=== PATIENT | female | born 1990 | race Caucasian/White ===

== ENCOUNTER 2017-10-07 10:59 | Emergency (ER) | payer SELFPAY ==
--- OUTSIDE RECORDS SUMMARY | 2017-10-07 11:01 | XMS REPORT | Clinical Summary ---
:1990 Author Organization [facility] Address [address] [place] [id number] Care Team Providers Name Role Phone Unavailable Primary Care Provider Unavailable Allergies Active Allergy Reactions Severity Noted Date Comments Risperidone Other 09/29/2017 Seizures, and dystonia per patient Current Medications Prescription Sig. Disp. Refills Start Date End Date Status clonazePAM (KLONOPIN) Take 1 mg by Active 1 mg tablet mouth 2 times daily as needed for Anxiety (to help with sleep as needed per patient). ibuprofen (MOTRIN) 400 Take 1 tablet by 30 tablet 0 10/02/2017 Active mg tabletIndications: mouth every 6 Sepsis, due to hours as needed unspecified organism for Pain or Fever > 100.5. QUEtiapine (SEROQUEL) Take 1 tablet by 30 tablet 0 10/02/2017 Active 300 mg mouth at bedtime tabletIndications: nightly. Sepsis, due to unspecified organism ciprofloxacin HCl Take 1 tablet by 24 tablet 0 10/02/2017 10/14/2017 Active (CIPRO) 500 mg mouth 2 times tabletIndications: daily for 12 Sepsis, due to days. unspecified organism Active Problems Problem Noted Date Fever 09/29/2017 SOB (shortness of breath) 09/29/2017 Sepsis 09/29/2017 Chest pain on breathing Generalized abdominal pain IV drug abuse Encounters Date Type Specialty Care Team Description 09/29/2017 - Hospital Encounter CAITLIN Evans (shortness of breath) ( Primary Dx); 10/02/2017 MD Damian Chest pain on breathing; Madelin Larson MD Fever, unspecified fever cause; Generalized abdominal pain; IV drug abuse; Sepsis, due to unspecified organism after 10/06/2016 Social History Tobacco Use Types Packs/Day Years Used Date Current Every Day Smoker Cigarettes 1 10 Smokeless Tobacco: Never Used Alcohol Use Drinks/Week oz/Week Comments No Sex Assigned at Date Recorded Not on file Last Filed Vital Signs Vital Sign Reading Time Taken Blood Pressure 110/71 10/02/2017 2:50 AM CDT Pulse 109 10/01/2017 7:47 PM CDT Temperature 37.7 C (99.8 F) 10/02/2017 2:50 AM CDT Respiratory Rate 16 10/02/2017 2:50 AM CDT Oxygen Saturation 100% 10/02/2017 2:50 AM CDT Inhaled Oxygen Concentration - - Weight 65.7 kg (144 lb 12.8 oz) 09/29/2017 5:56 PM CDT Height 158.3 cm (5' 2.32") 09/29/2017 5:56 PM CDT Body Mass Index 26.21 09/29/2017 5:56 PM CDT Plan of Treatment Health Maintenance Due Date Last Done Comments IMM MenB (1 of 2 - Bexsero 2-Dose Series) 2002 Cervical Cancer Scrn (3 Yrs) 2013 IMM Influenza Seasonal Dec to May (>/=19 yrs) 12/14/2017 Results CBC/DIFF (10/02/2017 6:00 AM)Only the most recent of3 resultswithin the time period is included. Component Value Ref Range WBC 11.3 (H) 4.5 - 11.0 K/uL RBC 3.67 (L) 4.20 - 5.40 M/uL Hemoglobin 10.4 (L) 12.0 - 16.0 g/dL Hematocrit 30.9 (L) 37.0 - 47.0 % MCV 84 82 - 92 fL MCH 28.3 27.0 - 32.0 pg MCHC 33.7 32.0 - 36.0 g/dL RDW 42.0 36.4 - 46.3 fL Platelet 176 150 - 400 K/uL Mean Platelet Volume 11.6 9.4 - 12.4 fL Percent NRBC 0.0 Absolute NRBC 0.00 Neutrophil 59.0 34.0 - 70.0 % Lymphocyte 22.0 20.0 - 50.0 % Monocyte 13.0 (H) 5.0 - 12.0 % Eosinophil 2.0 0.7 - 5.0 % Basophil None seen 0.1 - 1.2 % Neutrophil, Abs 6.68 (H) 1.56 - 6.13 K/uL Lymphocyte, Abs 2.49 1.18 - 3.74 K/uL Monocyte, Abs 1.47 (H) 0.24 - 0.36 K/uL Eosinophil, Abs 0.23 0.04 - 0.36 K/uL Basophil, Abs None seen 0.01 - 0.08 K/uL Metamyel 3 % Myelocyte 1 % Specimen Performing Laboratory Blood MISYS LACTIC ACID (09/30/2017 11:40 AM)Only the most recent of2 resultswithin the time period is included. Component Value Ref Range Lactic Acid 1.3 0.5 - 2.2 mmol/L Specimen Performing Laboratory Blood MISYS BASIC METABOLIC PANEL (09/30/2017 11:40 AM)Only the most recent of2 resultswithin the time period is included. Component Value Ref Range CO2 20 (L) 21 - 31 mmol/L Chloride 105 98 - 107 mmol/L Potassium 3.7 3.5 - 5.1 mmol/L Sodium 135 (L) 136 - 145 mmol/L Glucose 104 70 - 110 mg/dL Urea Nitrogen 13 7 - 25 mg/dL Creatinine 0.90 0.6 - 1.2 mg/dL Anion Gap 10 Calcium 8.1 (L) 8.6 - 10.3 mg/dL GFR, Estimated >60 mL/min/1.73 m2 GFR, Estim, Afr-Am >60 mL/min/1.73 m2 Specimen Performing Laboratory Blood MISYS BLOOD CULTURE (09/30/2017 11:40 AM)Only the most recent of3 resultswithin the time period is included. Component Value Ref Range Spec Description Blood Order Comments None Culture No growth 5 days Report Status Final 10/05/2017 Specimen Performing Laboratory Blood bag - BLOOD MISYS C. DIFFICILE TOXIN (09/30/2017 12:05 AM) Component Value Ref Range Spec Description Feces Order Comments None Direct Exam Negative for toxigenic Clostridium difficile by EIA No C. difficile infection or organism present. Discontinue enteric isolation and therapy. Report Status Final 09/30/2017 Specimen Performing Laboratory Stool - FECES MISYS CHLAM/GC DNA AMPLI (09/29/2017 3:50 PM) Component Value Ref Range Chlamydia trach Negative NEG N gonorrhoeae Negative NEG Comment: This test utilizes [employer] Aptima Combo 2 Assay for target amplification of rRNA for the qualitative detection of Chlamydia trachomatis and Neisseria gonorrhea. Spec Description Urine Specimen Performing Laboratory Other (Specify in Comments) - URINE MISYS ENTERIC PATHOGENS NUCLEIC ACID TEST (09/29/2017 3:46 PM) Component Value Ref Range Campylogbacter Not detected Salmonella Not detected Shigella Not detected Vibrio Not detected Yersinia entero Not detected Shiga Toxin 1 Not detected Shiga Toxin 2 Not detected Norovirus GI-GII Not detected Rotavirus A Not detected This test utilizes FDA cleared [employer] Enteric Pathogens Nucleic Acid Test(EP) from [employer] for qualitative nucleic acids multiplex detection and identification of common pathogenic enteric bacteria, viruses, and genetic virulence marker from stool of individuals with signs and symptoms of gastrointestinal infection. Specimen Performing Laboratory MISYS POCT URINE DIPSTICK - (09/29/2017 3:34 PM) Component Value Ref Range Control PASS NEGATIVE VBG POC (09/29/2017 2:26 PM)Only the most recent of3 resultswithin the time period is included. Component Value Ref Range pH, Trudy POC 7.38 7.33 - 7.43 pCO2, Trudy POC 31.5 (L) 38.0 - 50.0 mm Hg pO2, Trudy POC 27 (L) 50 - 75 mm Hg Base Deficit, Trudy POC 5 HCO3, Trudy POC 18.7 (L) 22.0 - 26.0 mmol/L % Sat, Trudy POC 51 (L) 60 - 85 % Lactic Acid, Trudy POC 4.07 (H) 0.4 - 2.0 mmol/L TCO2, TRUDY POC 20 (L) 21 - 32 mmol/L Specimen Performing Laboratory MISYS BMP POC (09/29/2017 12:21 PM)Only the most recent of2 resultswithin the time period is included. Component Value Ref Range CO2 POC 20 (L) 21 - 32 mmol/L Chloride POC 98 98 - 107 mmol/L Potassium POC 4.0 3.50 - 5.10 mmol/L Sodium POC 133 (L) 136 - 145 mmol/L Glucose POC 114 (H) 74 - 106 mg/dL Urea Nitrogen POC 31 (H) 7 - 18 mg/dL Creatinine POC 1.7 (H) 0.6 - 1.3 mg/dL Calcium Ionized POC 1.05 (L) 1.15 - 1.29 mmol/L Hemoglobin POC 10.9 (L) 12.0 - 16.0 g/dL Hematocrit POC 32.0 (L) 37.0 - 47.0 % GFR, Estimated 37 mL/min/1.73 m2 GFR, Estim, Afr-Am 45 mL/min/1.73 m2 Specimen Performing Laboratory MISYS UA CHEMISTRIES (09/29/2017 11:42 AM) Component Value Ref Range Color Yellow Clarity Cloudy Spec [place] 1.016 1.001 - 1.035 pH 5.0 5 - 8 Protein 3+ (A) NEG Glucose Negative NEG Ketone Negative NEG Bilirubin Negative NEG Nitrate Negative NEG Urobilinogen <1.0 0.2 - 1.0 EU/dL Leukocyte 2+ (A) NEG Blood 2+ (A) NEG RBC 31 (H) 0 - 4 /HPF WBC >182 (H) 0 - 5 /HPF WBC Clumps Many Bacteria Moderate Mucous Present Specimen Performing Laboratory Urine MISYS TEST (09/29/2017 11:42 AM) Component Value Ref Range Negative Specimen Performing Laboratory Urine MISYS URINE CULTURE (09/29/2017 11:17 AM) Component Value Ref Range Spec Description Clean catch urine Order Comments None Culture 10,000-100,000 CFU/ml Escherichia coli >100,000 colonist/ml Gr.D Enterococcus Report Status Final 10/02/2017 Organism 10,000-100,000 CFU/ml Escherichia coli Method JANNIE Amikacin <=4 Susceptible Ampicillin >16 Resistant Cefazolin 2 Resistant Cefepime <=0.5 Susceptible Ceftriaxone <=0.5 Susceptible Ceftazidime <=0.5 Susceptible Ciprofloxacin <=0.5 Susceptible Ertapenem <=0.125 Susceptible Gentamicin <=1 Susceptible Meropenem <=0.125 Susceptible Nitrofurantoin <=16 Susceptible Piperacillin/Tazo <=2/4 Susceptible Tobramycin 1 Susceptible Trimeth-sulfamethox <=0.5/9.5 Susceptible Organism >100,000 colonist/ml Gr.D Enterococcus Method JANNIE Ampicillin 1 Susceptible Vancomycin 1 Susceptible Gentamicin Synergy <=500 Susceptible Streptomycin Synergy <=1000 Susceptible Nitrofurantoin <=16 Susceptible Tetracycline >8 Resistant Specimen Performing Laboratory Urine clean catch - CLEAN CATCH URINE MISYS XRAY CHEST 1 VIEW (09/29/2017 10:01 AM) Specimen Performing Laboratory SMS Impressions IMPRESSION: Bilateral streaky lower lung opacities, which may represent vessels versus atelectasis. However follow-up chest radiograph in 4-6 weeks to document stability/resolution. Dictated By: Alberta Arreola MD, 09/29/2017 11:46 AM I have reviewed the study and agree with the findings in this report. Signed By: Bernard Sparrow DO, 09/29/2017 12:07 PM Narrative EXAM: XR CHEST 1 VIEW DATE: 09/29/2017 9:47 AM INDICATION: fever COMPARISON: None FINDINGS: Devices, Lines, and Tubes: None. Heart and Mediastinum: The cardiac silhouette is unremarkable. Lungs and Pleura: Bilateral streaky lower lung opacities, likely represents vessels. No effusion. No pneumothorax. Bones and Soft Tissues: No acute osseous or soft tissue abnormalities. Procedure Note Interface, Rad/Mammog In - 09/29/2017 12:12 PM CDT EXAM: XR CHEST 1 VIEW DATE: 09/29/2017 9:47 AM INDICATION: fever COMPARISON: None FINDINGS: Devices, Lines, and Tubes: None. Heart and Mediastinum: The cardiac silhouette is unremarkable. Lungs and Pleura: Bilateral streaky lower lung opacities, likely represents vessels. No effusion. No pneumothorax. Bones and Soft Tissues: No acute osseous or soft tissue abnormalities. IMPRESSION IMPRESSION: Bilateral streaky lower lung opacities, which may represent vessels versus atelectasis. However follow-up chest radiograph in 4-6 weeks to document stability/resolution. Dictated By: Alberta Arreola MD, 09/29/2017 11:46 AM I have reviewed the study and agree with the findings in this report. Signed By: Bernard Sparrow DO, 09/29/2017 12:07 PM TROPONIN I POC (09/29/2017 9:50 AM) Component Value Ref Range Troponin POC 0.00 0.00 - 0.08 ng/mL Specimen Performing Laboratory MISYS HCG, QUANTITATIVE (09/29/2017 9:45 AM) Component Value Ref Range hCG, Quantitative <1 <5 mIU/mL Specimen Performing Laboratory MISYS GRAM-NEG BLOOD CULTURE (09/29/2017 9:30 AM) Component Value Ref Range Acinetobacter Not detected Citrobacter Not detected Enterobacter Not detected Proteus Not detected Escherichia coli Detected POSITIVE for Eschericia coli by [employer] nucleic acid test. Conventional identification and antimicrobial susceptibility testing to follow. Klebsiella pneumo Not detected Klebsiella oxytoca Not detected Ps. aeruginosa Not detected CTX M Not detected KPC Not detected NDM Not detected VIM Not detected IMP Not detected OXA Not detected This test is performed on [employer] System utilizing reverse test desk operator (RT), polymerase chain reaction (PCR) and array hybridization , FDA cleared [employer]ene Gram-Negative Blood Culture Nucleic Acid TEest. "Not Detected" results for antimicrobial resitance genes should not be interpreted as confirming antimicrobial susceptibility of detected organisms. Antimicrobial resistance may be present by mechanisms not detected by BC-Gn. 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
--- OUTSIDE RECORDS SUMMARY | 2017-10-07 11:01 | XMS REPORT ---
:1990 [facility] Address [address] [place] [address] [address] [place] [address] Care Team Providers Name Role Phone Unavailable Unavailable Unavailable Problems This patient has no known problems. Allergies, Adverse Reactions, Alerts This patient has no known allergies or adverse reactions. Medications This patient has no known medications. Encounters Start End Encounter Admission Attending Care Care Encounter Date/Time Date/Time Type Type Clinicians Facility Department ID 2017-09-30 Inpatient [facility] [id number] 22:38:12 2017-09-29 Inpatient [facility] [id number] 16:16:27 2017-09-29 Inpatient [facility] [id number] 00:00:00 2017-09-29 2017-09-29 Emergency [facility] [id number] 10:00:53 10:00:53 2017-09-29 2017-09-29 Inpatient [facility] [id number] 09:40:19 09:40:19
[2017-10-07] MEDS ORDERED: ONDANSETRON 4 MG/2 ML VIAL ONE (11:59)
[2017-10-07] MEDS ORDERED: NA CHLORIDE 0.9% 1,000 ML ONE (11:59)
[2017-10-07 12:14] LABS: Urine Blood TRACE (NEG); Urine Glucose NEGATIVE (NEG); Urine Protein 2+ (NEG); Urine Specific Gravity 1.025 (1.005-1.030)
[2017-10-07 12:20] LABS: Absolute Lymphocytes (CBC) 2.5 K/uL (0.7-4.9); Absolute Monocytes 0.7 K/uL (0.1-1.3); Absolute Neutrophil 11.7 K/uL (1.8-8.0); Basophils % 0.6 % (0-1.3); Hematocrit 34.2 % (36.0-45.0); Lymphocytes % 16.7 % (15.3-44.8); MCH 29.1 pg (27.0-35.0); MCV 84.9 fL (80-100); MPV 7.4 fL (7.6-11.3); Monocytes % 4.7 % (3.3-12.3); RBC Red Blood Cell Count 4.03 M/uL (3.86-4.86)
[2017-10-07 12:24] LABS: Albumin 2.7 g/dL (3.4-5.0); Bilirubin Total 0.2 mg/dL (0.2-1.0); Potassium 3.5 mmol/L (3.5-5.1); Protein, Total 7.6 g/dL (6.4-8.2)
[2017-10-07 12:59] LABS: Blood Morphology Comment NOT SEEN (NOT SEEN); Platelet Estimate ADEQ; Urine White Blood Cell Casts OK
--- NOTE | 2017-10-07 13:03 | EDPHYS ---
Physician Documentation [facility] Name: Magy Ott Age: 26 yrs Sex: Female : 1990 Arrival Date: 10/07/2017 Time: 11:02 Bed 13 Private MD: ED Physician Pascual Denise HPI: 10/07 11:24 This 26 yrs old Female presents to ER via Ambulatory with complaints of kav Diarrhea, Weakness. 11:28 The patient presents to the emergency department with nausea, that is mild, vomiting, 0 kav times today, diarrhea, 2 times today. Onset: The symptoms/episode began/occurred acutely, 1 week(s) ago. Possible causes: unknown. The symptoms are aggravated by food , The symptoms are alleviated by nothing. Associated signs and symptoms: Pertinent positives: abdominal pain, diarrhea, fever, nausea, Pertinent negatives: dysuria. 11:33 Severity of symptoms: At their worst the symptoms were mild. kav 11:33 The patient has experienced a previous episode, approximately 1 weeks ago. Patient jennifer released from [facility] approximately one week ago where she was hospitalized for "...e-coli in her blood". She was released from hospital to [facility]. . She reports that she also has some abdominal cramping and "...thinks that she might have had a miscarriage". 11:36 She also reports that she tested positive for on September 25 by home kav test and then started bleeding on September 27.. Historical: - Allergies: 11:13 risperidone; sv - Home Meds: 11:14 Seroquel Oral [Active]; Prozac Oral [Active]; Hydroxyzine Oral [Active]; Toradol Oral sv [Active]; - PMHx: 11:13 Anxiety; Depression; sv - PSHx: 11:13 Ear Tubes; sv - Immunization history:: Adult Immunizations up to date. - Social history:: Smoking status: Patient uses tobacco products, smokes one pack cigarettes per day. - Ebola Screening: : No symptoms or risks identified at this time. - Family history:: not pertinent. - Hospitalizations: : No recent hospitalization is reported. ROS: 11:36 Eyes: Negative for injury, pain, redness, and discharge, ENT: Negative for injury, kav pain, and discharge, Neck: Negative for injury, pain, and swelling, Cardiovascular: Negative for chest pain, palpitations, and edema, Respiratory: Negative for shortness of breath, cough, wheezing, and pleuritic chest pain, Back: Negative for injury and pain, MS/Extremity: Negative for injury and deformity, Skin: Negative for injury, rash, and discoloration, Neuro: Negative for headache, weakness, numbness, tingling, and seizure, Psych: Negative for depression, anxiety, suicide ideation, homicidal ideation, and hallucinations, Allergy/Immunology: Negative for hives, rash, and allergies, Endocrine: Negative for neck swelling, polydipsia, polyuria, polyphagia, and marked weight changes, Hematologic/Lymphatic: Negative for swollen nodes, abnormal bleeding, and unusual bruising. 11:36 Constitutional: Positive for fever, Negative for body aches, chills, fatigue, poor PO intake, weight loss. 11:36 Abdomen/GI: Positive for abdominal pain, nausea, vomiting, and diarrhea, abdominal cramps, bowel incontinence, Negative for abdominal distension, dysphagia. 11:36 : Positive for vaginal bleeding, Negative for urinary symptoms, flank pain, bladder incontinence, foul smelling urine. Exam: 11:36 Constitutional: This is a well developed, well nourished patient who is awake, alert, kav and in no acute distress. Head/Face: Normocephalic, atraumatic. Eyes: Pupils equal round and reactive to light, extra-ocular motions intact. Lids and lashes normal. Conjunctiva and sclera are non-icteric and not injected. Cornea within normal limits. Periorbital areas with no swelling, redness, or edema. ENT: Nares patent. No nasal discharge, no septal abnormalities noted. Tympanic membranes are normal and external auditory canals are clear. Oropharynx with no redness, swelling, or masses, exudates, or evidence of obstruction, uvula midline. Mucous membranes moist. Neck: Trachea midline, no thyromegaly or masses palpated, and no cervical lymphadenopathy. Supple, full range of motion without nuchal rigidity, or vertebral point tenderness. No Meningismus. Chest/axilla: Normal chest wall appearance and motion. Nontender with no deformity. No lesions are appreciated. Respiratory: Lungs have equal breath sounds bilaterally, clear to auscultation and percussion. No rales, rhonchi or wheezes noted. No increased work of breathing, no retractions or nasal flaring. Back: No spinal tenderness. No costovertebral tenderness. Full range of motion. Skin: Warm, dry with normal turgor. Normal color with no rashes, no lesions, and no evidence of cellulitis. MS/ Extremity: Pulses equal, no cyanosis. Neurovascular intact. Full, normal range of motion. Neuro: Awake and alert, GCS 15, oriented to person, place, time, and situation. Cranial nerves II-XII grossly intact. Motor strength 5/5 in all extremities. Sensory grossly intact. Cerebellar exam normal. Normal gait. Psych: Awake, alert, with orientation to person, place and time. Behavior, mood, and affect are within normal limits. 11:36 Cardiovascular: Regular rate and rhythm with a normal S1 and S2. No gallops, murmurs, or rubs. Normal PMI, no JVD. No pulse deficits. 11:36 Abdomen/GI: Inspection: abdomen appears normal, Bowel sounds: normal, Palpation: soft, mild abdominal tenderness, in all quadrants. Vital Signs: 11:13 BP 129 / 99; Pulse 121; Resp 18; Temp 98.8(O); Pulse Ox 98% ; Weight 63.5 kg; Height 5 sv ft. 4 in. (162.56 cm); Pain 7/10; 12:35 BP 106 / 75; Pulse 99; Resp 16; Pulse Ox 100% on R/A; aj1 13:59 BP 108 / 73; Pulse 98; Resp 18; Pulse Ox 100% ; aj1 11:13 Body Mass Index 24.03 (63.50 kg, 162.56 cm) sv MDM: 11:21 Medical screening is not applicable. ka 13:03 Data reviewed: vital signs, nurses notes, lab test result(s). [facility] 10/07 11:22 Order name: CBC with Diff; Complete Time: 13:02 kav 10/07 11:22 Order name: CMP; Complete Time: 12:29 kav 10/07 11:55 Order name: Urine Dipstick--Ancillary (enter results); Complete Time: 12:29 bd 10/07 11:55 Order name: Urine --Ancillary (enter results); Complete Time: 12:29 bd 10/07 12:21 Order name: CBC Smear Scan; Complete Time: 13:02 EDMS 10/07 11:22 Order name: Urine Dipstick-Ancillary (obtain specimen); Complete Time: 11:47 ka 10/07 11:22 Order name: Urine Test (obtain specimen); Complete Time: 11:46 ka Administered Medications: 12:08 Drug: NS 0.9% 1000 ml Route: IV; Rate: 1 bolus; Site: right hand; aj 14:00 Follow up: IV Status: Completed infusion; IV Intake: 1000ml aj 12:08 Drug: Zofran 4 mg Route: IVP; Site: right hand; [facility] 14:00 Follow up: Response: No adverse reaction aj1 Disposition: 16:49 Co-signature as Attending Physician, Pascual Denise MD. rn Disposition: 10/07/17 13:03 Discharged to Home. Impression: Dehydration, Gastroenteritis. - Condition is Stable. - Discharge Instructions: Viral Gastroenteritis, Adult, [id number], Dehydration, Adult, [id number]. - Prescriptions for Flagyl 500 mg Oral Tablet - take 1 tablet by ORAL route every 8 hours for 10 days; 30 tablet. Cipro 500 mg Oral Tablet - take 1 tablet by ORAL route every 12 hours for 7 days; 14 tablet. - Medication Reconciliation Form, Thank You Letter, Antibiotic Education, Prescription Opioid Use form. - Follow up: Private Physician; When: 2 - 3 days; Reason: Recheck today's complaints, Continuance of care, Re-evaluation by your physician. - Problem is new. - Symptoms have improved. Signatures: Dispatcher [employer] [facility] Meri Lawrence RN RN ajLizz Nieves RN RN sv Vern, Katherine, [employer] Pascual Martinez MD MD internal combustion engineer: (The following items were deleted from the chart) 14:00 13:03 10/07/2017 13:03 Discharged to Home. Impression: Dehydration; Gastroenteritis. aj1 Condition is Stable. Discharge Instructions: Viral Gastroenteritis, Adult, [id number], Dehydration, Adult, [id number]. Prescriptions for Flagyl 500 mg Oral Tablet - take 1 tablet by ORAL route every 8 hours for 10 days; 30 tablet, Cipro 500 mg Oral Tablet - take 1 tablet by ORAL route every 12 hours for 7 days; 14 tablet. and Forms are Medication Reconciliation Form, Thank You Letter, Antibiotic Education, Prescription Opioid Use. Follow up: Private Physician; When: 2 - 3 days; Reason: Recheck today's complaints, Continuance of care, Re-evaluation by your physician. Problem is new. Symptoms have improved. jennifer
--- NOTE | 2017-10-07 13:03 | ER ---
Nurse's Notes [facility] Name: Magy Ott Age: 26 yrs Sex: Female : 1990 Arrival Date: 10/07/2017 Time: 11:02 Bed 13 Private MD: Diagnosis: Dehydration;Gastroenteritis Presentation: 10/07 11:10 Presenting complaint: Patient states: was released from [facility] about 5 days ago, dx sv with E. Coli in blood and was [facility] to [facility]. Pt still having diarrhea and generalized weakness. Pt was not sent with any antibiotics and hasn't been taking her regular medications. Pt reports + preg test on 09/25/17 and was having vaginal bleeding but has subsided and thinks she might have had a miscarriage. Reports cramping. Transition of care: patient was not received from another setting of care. Onset of symptoms. Care prior to arrival: None. 11:10 Method Of Arrival: Ambulatory sv 11:10 Acuity: DAPHNE 3 sv Historical: - Allergies: 11:13 risperidone; sv - Home Meds: 11:14 Seroquel Oral [Active]; Prozac Oral [Active]; Hydroxyzine Oral [Active]; Toradol Oral sv [Active]; - PMHx: 11:13 Anxiety; Depression; sv - PSHx: 11:13 Ear Tubes; sv - Immunization history:: Adult Immunizations up to date. - Social history:: Smoking status: Patient uses tobacco products, smokes one pack cigarettes per day. - Ebola Screening: : No symptoms or risks identified at this time. - Family history:: not pertinent. - Hospitalizations: : No recent hospitalization is reported. Screenin:47 Abuse screen: Denies threats or abuse. Denies injuries from another. Nutritional aj1 screening: No deficits noted. Tuberculosis screening: No symptoms or risk factors identified. Assessment: 11:47 General: Appears in no apparent distress. comfortable, Behavior is cooperative, aj1 anxious. Pain: Complains of pain in right lower quadrant and left lower quadrant Pain does not radiate. Pain currently is 7 out of 10 on a pain scale. Quality of pain is described as crampy. Neuro: Level of Consciousness is awake, alert, obeys commands, Oriented to person, place, time, situation, Speech is normal. Cardiovascular: Patient's skin is warm and dry. Respiratory: Airway is patent Respiratory effort is even, unlabored, Respiratory pattern is regular, symmetrical. GI: Abdomen is flat, non-distended, Bowel sounds present X 4 quads. Abd is soft and non tender X 4 quads. Reports diarrhea, nausea, vomiting. : Reports vaginal bleeding that is now resolved. She had a positive test recently so she thinks that she may have had a miscarriage. EENT: No signs and/or symptoms were reported regarding the EENT system. Derm: No signs and/or symptoms reported regarding the dermatologic system. Skin is pink, warm \T\ dry. normal. Musculoskeletal: No signs and/or symptoms reported regarding the musculoskeletal system. Circulation, motion, and sensation intact. 12:35 Reassessment: Patient appears in no apparent distress at this time. No changes from aj1 previously documented assessment. Patient and/or family updated on plan of care and expected duration. Pain level reassessed. Patient is alert, oriented x 3, equal unlabored respirations, skin warm/dry/pink. 13:59 Reassessment: Patient appears in no apparent distress at this time. No changes from aj1 previously documented assessment. Patient and/or family updated on plan of care and expected duration. Pain level reassessed. Patient is alert, oriented x 3, equal unlabored respirations, skin warm/dry/pink. Vital Signs: 11:13 BP 129 / 99; Pulse 121; Resp 18; Temp 98.8(O); Pulse Ox 98% ; Weight 63.5 kg; Height 5 sv ft. 4 in. (162.56 cm); Pain 7/10; 12:35 BP 106 / 75; Pulse 99; Resp 16; Pulse Ox 100% on R/A; aj1 13:59 BP 108 / 73; Pulse 98; Resp 18; Pulse Ox 100% ; aj1 11:13 Body Mass Index 24.03 (63.50 kg, 162.56 cm) sv ED Course: 11:02 Patient arrived in ED. rg4 11:12 Triage completed. sv 11:13 Arm band placed on right wrist. sv 11:21 Sabrina Sandoval FNP is PHCP. kav 11:21 Pascual Denise MD is Attending Physician. kav 11:22 Meri Lawrence RN is Primary Nurse. aj1 11:47 Patient has correct armband on for positive identification. Bed in low position. Call aj1 light in reach. Side rails up X 1. 11:47 No provider procedures requiring assistance completed. aj1 11:52 Missed attempt(s): 22 gauge in right hand. Bleeding controlled, band aid applied, dh3 catheter tip intact. 11:55 Initial lab(s) drawn, by me, sent to lab. Inserted saline lock: 24 gauge in right hand, dh3 using aseptic technique. Blood collected. 13:58 IV discontinued, intact, bleeding controlled, No redness/swelling at site. Pressure aj1 dressing applied. Administered Medications: 12:08 Drug: NS 0.9% 1000 ml Route: IV; Rate: 1 bolus; Site: right hand; aj1 14:00 Follow up: IV Status: Completed infusion; IV Intake: 1000ml aj1 12:08 Drug: Zofran 4 mg Route: IVP; Site: right hand; aj1 14:00 Follow up: Response: No adverse reaction aj1 Intake: 14:00 IV: 1000ml; Total: 1000ml. aj1 Outcome: 13:03 Discharge ordered by MD. rodriguez 13:59 Discharged to home ambulatory. aj1 13:59 Condition: good 13:59 Discharge instructions given to patient, Instructed on discharge instructions, follow up and referral plans. medication usage, Demonstrated understanding of instructions, follow-up care, medications. 14:00 Patient left the ED. aj1 Signatures: Meri Lawrence RN RN Lizz Gr RN RN Sabrina Leon, [employer]ATE G[employer]ATE Cat Barrios rg4 Caprice Wiley 3 Corrections: (The following items were deleted from the chart) 11:17 11:13 BP 129 / 99; Pulse 121bpm; Resp 18bpm; Pulse Ox 98%; 63.5 kg; Height 5 ft. 4 in.; sv BMI: 24.0; Pain 7/10; sv
== END 2017-10-07 14:00 | disposition home or self-care (01) ==
LOC: ER 10:59
DX: K52.9 Noninfective gastroenteritis and colitis, unspecified (principal); E86.0 Dehydration; F17.210 Nicotine dependence, cigarettes, uncomplicated; F41.9 Anxiety disorder, unspecified; F32.9 Major depressive disorder, single episode, unspecified; Z88.8 Allergy status to other drugs, medicaments and biological substances
CPT/HCPCS: 36415; 80053; 81003; 81025; 85025; 96361; 96374; 99283; J2405; J7030